=== PATIENT | male | born 1995 | race Caucasian/White ===

== ENCOUNTER 2016-12-02 11:05 | Emergency (ER) | payer MEDICAID ==
[~2016-12-02] VITALS: Ht 167.6 cm; Wt 78.0 kg
[~2016-12-02 11:05] MED LIST: METO5TAB57 PO; OMEP20CA9 PO; OMEP20TA62 PO; ONDA8TAB16 SL; PANT40TA3 PO; PRILOSEC PO; TRAM50TA2 PO
[2016-12-02] MEDS ORDERED: SODIUM CHLORIDE 0.9% 1,000 ML IV ONE (11:25)
[2016-12-02] MEDS ORDERED: SODIUM CHLORIDE 0.9% 1,000ML IVBOLUS ONE (11:30)
[2016-12-02] MEDS ORDERED: ONDANSETRON 2MG/ML, 2ML IVPush ONE ×2 (11:30→15:00)
[2016-12-02] MEDS ORDERED: FAMOTIDINE 20 MG/2 ML IVP ONE (11:30)
[2016-12-02] MEDS ORDERED: MAALOX/HYOSCYAMINE/LIDOCAINE 45 ML BTL PO ONE (11:30)
[2016-12-02] MEDS ORDERED: LORazepam 2 MG/ML, 1ML IVPush ONE (11:30)
[2016-12-02] MEDS ORDERED: FAMOTIDINE 20 MG/2 ML ONE (11:33)
[2016-12-02] MEDS ORDERED: ONDANSETRON 2MG/ML, 2ML ONE ×2 (11:33→14:44)
[2016-12-02] MEDS ORDERED: MORPHINE SULFATE 4 MG/ML, 1ML ONE ×4 (11:33→15:53)
[2016-12-02] MEDS ORDERED: MAALOX/HYOSCYAMINE/LIDOCAINE 45 ML BTL ONE (11:33)
[2016-12-02] MEDS ORDERED: LORazepam 2 MG/ML, 1ML ONE (11:35)
[2016-12-02] MEDS: MORPHINE SULFATE 4 MG/ML, 1ML IVPush PRN ×2 (11:46→12:06)
[2016-12-02 11:54] LABS: ASPARTATE AMINO TRANSFERASE 28 U/L (15-37); BLOOD UREA NITROGEN 15 mg/dL (7-18)
[2016-12-02] MEDS ORDERED: MORPHINE SULFATE 4 MG/ML, 1ML IVPush PRN (15:00)
[2016-12-02] MEDS ORDERED: OMNIPAQUE 350 MG/ML, 100ML BOTTLE ONE (15:29)
[2016-12-02 16:19] VITALS: BP 128/95
== END 2016-12-02 16:21 | disposition home or self-care (01) ==
LOC: ED 15:27
DX: K29.50 Unspecified chronic gastritis without bleeding (principal); D72.829 Elevated white blood cell count, unspecified; G43.A0 Cyclical vomiting, in migraine, not intractable; K21.9 Gastro-esophageal reflux disease without esophagitis; Z90.49 Acquired absence of other specified parts of digestive tract
CPT/HCPCS: 36415; 74020; 74177; 80053; 83690; 85025; 93005; 96361; 96374; 96375; 96376; 99285; J2060; J2405; J7030; Q9967; S0028

== ENCOUNTER 2017-01-27 09:04 | Emergency (ER) | payer MEDICAID ==
[~2017-01-27] VITALS: Ht 167.6 cm; Wt 76.1 kg
[2017-01-27] MEDS ORDERED: SODIUM CHLORIDE 0.9% 1,000 ML IV ONE (10:02)
[2017-01-27] MEDS ORDERED: OMEP20TA62 PO (10:04)
[2017-01-27] MEDS ORDERED: FAMOTIDINE 20 MG/2 ML ONE (10:26)
[2017-01-27] MEDS ORDERED: ONDANSETRON 2MG/ML, 2ML ONE (10:26)
[2017-01-27] MEDS ORDERED: MORPHINE SULFATE 4 MG/ML, 1ML ONE ×2 (10:26→11:15)
[2017-01-27] MEDS ORDERED: FAMOTIDINE 20 MG/2 ML IVP ONE (10:30)
[2017-01-27] MEDS ORDERED: ONDANSETRON 2MG/ML, 2ML IVPush ONE (10:30)
[2017-01-27] MEDS ORDERED: SODIUM CHLORIDE 0.9% 1,000ML IVBOLUS ONE (10:30)
[2017-01-27] MEDS: MORPHINE SULFATE 4 MG/ML, 1ML IVPush PRN ×2 (10:41→11:17)
[2017-01-27 11:13] LABS: HEMATOCRIT 51.7 % (39.2-51.8); HEMOGLOBIN 17.7 g/dL (13.7-18.0); WHITE BLOOD COUNT 13.5 x10^3/uL (3.4-10)
[2017-01-27 11:25] LABS: BLOOD UREA NITROGEN 16 mg/dL (7-18)
[2017-01-27 11:29] LABS: ASPARTATE AMINO TRANSFERASE 36 U/L (15-37)
[2017-01-27 12:42] VITALS: BP 122/68
== END 2017-01-27 12:45 | disposition home or self-care (01) ==
LOC: ED 12:07
DX: K59.00 Constipation, unspecified (principal); Z90.49 Acquired absence of other specified parts of digestive tract; K21.9 Gastro-esophageal reflux disease without esophagitis; D72.829 Elevated white blood cell count, unspecified
CPT/HCPCS: 36415; 74020; 80053; 81001; 83690; 85025; 87086; 96361; 96374; 96375; 96376; 99285; J2405; J7030; S0028

== ENCOUNTER 2017-05-20 14:58 | Emergency (ER) | payer OTHER, MEDICAID ==
[~2017-05-20] VITALS: Ht 167.6 cm; Wt 78.5 kg
[2017-05-20] MEDS ORDERED: MAALOX/HYOSCYAMINE/LIDOCAINE 45 ML BTL ONE ×2 (15:32→16:19)
[2017-05-20] MEDS ORDERED: SODIUM CHLORIDE FLUSH 10ML SYR IVF ONE (16:00)
[2017-05-20] MEDS ORDERED: MAALOX/HYOSCYAMINE/LIDOCAINE 45 ML BTL PO ONE (16:00)
[2017-05-20] MEDS ORDERED: ONDANSETRON 2MG/ML, 2ML IVPush ONE ×2 (16:00→17:00)
[2017-05-20] MEDS ORDERED: SODIUM CHLORIDE 0.9% 1,000ML IVBOLUS ONE (16:00)
[2017-05-20] MEDS ORDERED: FAMOTIDINE 20 MG/2 ML IVPush ONE (16:00)
[2017-05-20] MEDS ORDERED: PANT40TA3 PO (16:10)
[2017-05-20] MEDS ORDERED: ONDANSETRON 2MG/ML, 2ML ONE (16:19)
[2017-05-20] MEDS ORDERED: FAMOTIDINE 20 MG/2 ML ONE (16:19)
[2017-05-20 16:28] LABS: MEAN CORPUSCULAR HEMOGLOBIN 30.1 pg (27.5-34.5); MEAN CORPUSCULAR HGB CONC 34.5 g/dL (33.2-36.2); MEAN CORPUSCULAR VOLUME 87.2 fL (81-97); MEAN PLATELET VOLUME 9.1 fL (7.4-10.4); PLATELET COUNT 196 x10^3/uL (130-400); RED BLOOD COUNT 5.73 x10^6/uL (4.38-5.82); RED CELL DISTRIBUTION WIDTH 12.8 % (9.4-14.8)
[2017-05-20 16:38] LABS: ALANINE AMINOTRANSFERASE 36 U/L (12-78); ALBUMIN 4.8 g/dL (3.4-5.0); ANION GAP 13 mmol/L (5-15); CALCIUM 9.9 mg/dL (8.5-10.1); CHLORIDE 100 mmol/L (98-107); CREATININE 1.01 mg/dL (0.7-1.3)
[2017-05-20 16:40] LABS: ALKALINE PHOSPHATASE 96 U/L (45-117); BILIRUBIN,TOTAL 1.5 mg/dL (0.2-1.0); TOTAL PROTEIN 8.4 g/dL (6.4-8.2)
[2017-05-20 16:54] LABS: MD YES
[2017-05-20 16:57] LABS: BANDS%(MANUAL) 3 % (0-7); LYMPHS% (MANUAL) 3 % (22-44); MONOS#(MANUAL) 0.27 x10^3/uL (0.3-2.7); MONOS% (MANUAL) 1 % (2-9); SEG#(MANUAL) 24.83 x10^3/uL (1.8-6.8); SEGS% (MANUAL) 93 % (42-75)
[2017-05-20 16:58] LABS: <PLATELET ESTIMATE> ADEQUATE; <PLT MORPHOLOGY> NORMAL PLT MORPH; <RBC MORPHOLOGY> NORMAL
[2017-05-20] MEDS ORDERED: MORPHINE SULFATE 4 MG/ML, 1ML IVPush PRN (17:00)
[2017-05-20] MEDS ORDERED: MORPHINE SULFATE 4 MG/ML, 1ML ONE (17:06)
[2017-05-20 18:11] VITALS: BP 112/63
== END 2017-05-20 18:15 | disposition home or self-care (01) ==
LOC: ED 17:22
DX: R11.2 Nausea with vomiting, unspecified (principal); K29.70 Gastritis, unspecified, without bleeding; Z90.49 Acquired absence of other specified parts of digestive tract
CPT/HCPCS: 36415; 76700; 80053; 83690; 85025; 96361; 96374; 96375; 99285; J2405; J7030; S0028

== ENCOUNTER 2017-07-30 18:08 | Emergency (ER) | payer OTHER, MEDICAID ==
[~2017-07-30] VITALS: Ht 167.6 cm; Wt 76.7 kg
[2017-07-30 18:45] LABS: BASOPHILS # (AUTO) 0.01 x10^3/uL (0-0.1); BASOPHILS % (AUTO) 0 % (0-1); EOSINOPHILS % (AUTO) 0 % (1-7); LYMPHOCYTES # (AUTO) 2.28 x10^3/uL (1-3.4); LYMPHOCYTES % (AUTO) 14 % (22-44); MD NO; MEAN CORPUSCULAR HEMOGLOBIN 30.1 pg (27.5-34.5); MEAN CORPUSCULAR HGB CONC 34.1 g/dL (33.2-36.2); MEAN CORPUSCULAR VOLUME 88.1 fL (81-97); MEAN PLATELET VOLUME 8.9 fL (7.4-10.4); MONOCYTES # (AUTO) 0.49 x10^3/uL (0.2-0.8); MONOCYTES % (AUTO) 3 % (2-9); NEUTROPHILS # (AUTO) 13.61 x10^3/uL (1.8-6.8); NEUTROPHILS % (AUTO) 83 % (42-75); PLATELET COUNT 266 x10^3/uL (130-400); RED BLOOD COUNT 5.93 x10^6/uL (4.38-5.82); RED CELL DISTRIBUTION WIDTH 12.9 % (9.4-14.8)
[2017-07-30 18:56] LABS: ALANINE AMINOTRANSFERASE 147 U/L (12-78); ALBUMIN 5.1 g/dL (3.4-5.0); ANION GAP 13 mmol/L (5-15); CALCIUM 9.8 mg/dL (8.5-10.1); CHLORIDE 105 mmol/L (98-107)
[2017-07-30 18:58] LABS: ALKALINE PHOSPHATASE 79 U/L (45-117); BILIRUBIN,TOTAL 1.6 mg/dL (0.2-1.0); TOTAL PROTEIN 8.7 g/dL (6.4-8.2)
[2017-07-30] MEDS ORDERED: SODIUM CHLORIDE 0.9% 1,000ML IVBOLUS ONE (19:30)
[2017-07-30] MEDS ORDERED: ONDANSETRON 2MG/ML, 2ML IVPush ONE (19:30)
[2017-07-30] MEDS ORDERED: FAMOTIDINE 20 MG/2 ML IVP ONE (19:30)
[2017-07-30] MEDS ORDERED: SODIUM CHLORIDE FLUSH 10ML SYR IVF ONE (19:30)
[2017-07-30] MEDS ORDERED: FAMOTIDINE 20 MG/2 ML ONE (19:40)
[2017-07-30] MEDS ORDERED: MORPHINE SULFATE 4 MG/ML, 1ML ONE ×2 (19:40→21:01)
[2017-07-30] MEDS ORDERED: ONDANSETRON 2MG/ML, 2ML ONE (19:40)
[2017-07-30] MEDS: MORPHINE SULFATE 4 MG/ML, 1ML IVPush PRN ×2 (20:11→21:18)
[2017-07-30] MEDS ORDERED: MAALOX/HYOSCYAMINE/LIDOCAINE 45 ML BTL ONE (21:23)
[2017-07-30] MEDS ORDERED: MAALOX/HYOSCYAMINE/LIDOCAINE 45 ML BTL PO ONE (21:30)
[2017-07-30 21:33] LABS: MICROSCOPIC INDICATED
[2017-07-30 21:40] LABS: CULTURE INDICATED? NO
[2017-07-30 22:05] VITALS: BP 139/64
== END 2017-07-30 22:08 | disposition home or self-care (01) ==
LOC: ED 21:34
DX: R10.11 Right upper quadrant pain (principal); K21.9 Gastro-esophageal reflux disease without esophagitis; G43.A0 Cyclical vomiting, in migraine, not intractable; Z90.49 Acquired absence of other specified parts of digestive tract
CPT/HCPCS: 36415; 74018; 76700; 80053; 81001; 83690; 85025; 96361; 96374; 96375; 96376; 99285; J2405; J7030; S0028

== ENCOUNTER 2017-10-03 11:16 | Emergency (ER) | payer OTHER, MEDICAID ==
[~2017-10-03] VITALS: Ht 167.6 cm; Wt 74.8 kg
[2017-10-03] MEDS ORDERED: OMEP20TA62 PO (11:42)
[2017-10-03] MEDS ORDERED: HALOPERIDOL 5 MG/ML ONE (11:45)
[2017-10-03] MEDS ORDERED: MAALOX/HYOSCYAMINE/LIDOCAINE 45 ML BTL ONE (11:46)
[2017-10-03] MEDS ORDERED: MORPHINE SULFATE 4 MG/ML, 1ML ONE (11:46)
[2017-10-03] MEDS ORDERED: FAMOTIDINE 20 MG/2 ML ONE (11:46)
[2017-10-03 11:57] LABS: MEAN CORPUSCULAR HEMOGLOBIN 29.4 pg (27.5-34.5); MEAN CORPUSCULAR HGB CONC 33.9 g/dL (33.2-36.2); MEAN CORPUSCULAR VOLUME 86.9 fL (81-97); PLATELET COUNT 225 x10^3/uL (130-400); RED BLOOD COUNT 5.99 x10^6/uL (4.38-5.82); RED CELL DISTRIBUTION WIDTH 12.7 % (9.4-14.8)
[2017-10-03] MEDS ORDERED: SODIUM CHLORIDE FLUSH 10ML SYR IVF ONE (12:00)
[2017-10-03] MEDS ORDERED: FAMOTIDINE 20 MG/2 ML IVP ONE (12:00)
[2017-10-03] MEDS ORDERED: HALOPERIDOL 5 MG/ML IV ONE (12:00)
[2017-10-03] MEDS ORDERED: MORPHINE SULFATE 4 MG/ML, 1ML IVPush PRN (12:00)
[2017-10-03] MEDS ORDERED: MAALOX/HYOSCYAMINE/LIDOCAINE 45 ML BTL PO ONE (12:00)
[2017-10-03] MEDS ORDERED: SODIUM CHLORIDE 0.9% 1,000ML IVBOLUS ONE (12:00)
[2017-10-03 12:06] LABS: ALANINE AMINOTRANSFERASE 34 U/L (12-78); ALBUMIN 5.3 g/dL (3.4-5.0); ANION GAP 12 mmol/L (5-15); CHLORIDE 105 mmol/L (98-107); CREATININE 1.14 mg/dL (0.7-1.3)
[2017-10-03 12:09] LABS: ALKALINE PHOSPHATASE 92 U/L (45-117); BILIRUBIN,TOTAL 1.3 mg/dL (0.2-1.0)
[2017-10-03 12:34] LABS: MD YES
[2017-10-03 12:37] LABS: <PLATELET ESTIMATE> ADEQUATE; <PLT MORPHOLOGY> NORMAL PLT MORPH; <RBC MORPHOLOGY> NORMAL; BAND#(MANUAL) 0.37 x10^3/uL; BANDS%(MANUAL) 1 % (0-7); LYMPH#(MANUAL) 0.37 x10^3/uL (1-3.4); LYMPHS% (MANUAL) 1 % (22-44); MONOS#(MANUAL) 0.37 x10^3/uL (0.3-2.7); MONOS% (MANUAL) 1 % (2-9); SEGS% (MANUAL) 97 % (42-75)
[2017-10-03 13:26] VITALS: BP 124/65
== END 2017-10-03 13:29 | disposition home or self-care (01) ==
LOC: ED 11:50
DX: K29.00 Acute gastritis without bleeding (principal); D72.829 Elevated white blood cell count, unspecified
CPT/HCPCS: 36415; 80053; 83690; 85025; 96361; 96374; 96375; 99284; J1630; J7030; S0028

== ENCOUNTER 2017-12-16 18:56 | Emergency (ER) | payer MEDICAID, OTHER ==
[~2017-12-16] VITALS: Ht 167.6 cm; Wt 77.0 kg
[2017-12-16 19:22] LABS: MEAN CORPUSCULAR HEMOGLOBIN 30.1 pg (27.5-34.5); MEAN CORPUSCULAR HGB CONC 34.1 g/dL (33.2-36.2); MEAN CORPUSCULAR VOLUME 88.1 fL (81-97); MEAN PLATELET VOLUME 9.4 fL (7.4-10.4); PLATELET COUNT 220 x10^3/uL (130-400); RED BLOOD COUNT 5.74 x10^6/uL (4.38-5.82)
[2017-12-16 19:30] LABS: ALANINE AMINOTRANSFERASE 44 U/L (12-78); ALBUMIN 5.1 g/dL (3.4-5.0); ANION GAP 16 mmol/L (5-15); CALCIUM 10.3 mg/dL (8.5-10.1); CHLORIDE 101 mmol/L (98-107); CREATININE 1.29 mg/dL (0.7-1.3)
[2017-12-16] MEDS ORDERED: FAMOTIDINE 20 MG/2 ML IVP ONE (19:30)
[2017-12-16] MEDS ORDERED: SODIUM CHLORIDE FLUSH 10ML SYR IVF ONE ×2 (19:30→22:30)
[2017-12-16] MEDS ORDERED: ONDANSETRON 2MG/ML, 2ML IVPush ONE (19:30)
[2017-12-16] MEDS ORDERED: SODIUM CHLORIDE 0.9% 1,000ML IVBOLUS ONE ×2 (19:30→22:30)
[2017-12-16 19:32] LABS: ALKALINE PHOSPHATASE 98 U/L (45-117); BILIRUBIN,TOTAL 1.4 mg/dL (0.2-1.0); TOTAL PROTEIN 9.1 g/dL (6.4-8.2)
[2017-12-16] MEDS ORDERED: ONDANSETRON 2MG/ML, 2ML ONE (19:36)
[2017-12-16] MEDS ORDERED: HYDROmorphone 2 MG/ML, 1ML ONE ×2 (19:36→22:53)
[2017-12-16] MEDS ORDERED: FAMOTIDINE 20 MG/2 ML ONE (19:36)
[2017-12-16] MEDS: HYDROmorphone 2 MG/ML, 1ML IVPush PRN ×2 (19:39→22:58)
[2017-12-16 19:53] LABS: MD YES
[2017-12-16 19:55] LABS: <RBC MORPHOLOGY> NORMAL; BAND#(MANUAL) 0.88 x10^3/uL; BANDS%(MANUAL) 3 % (0-7); LYMPH#(MANUAL) 0.88 x10^3/uL (1-3.4); LYMPHS% (MANUAL) 3 % (22-44); MONOS#(MANUAL) 0.58 x10^3/uL (0.3-2.7); MONOS% (MANUAL) 2 % (2-9); SEG#(MANUAL) 26.86 x10^3/uL (1.8-6.8); SEGS% (MANUAL) 92 % (42-75)
[2017-12-16 19:56] LABS: <PLATELET ESTIMATE> ADEQUATE; <PLT MORPHOLOGY> NORMAL PLT MORPH
[2017-12-16 20:29] LABS: TROPONIN I < 0.015 ng/mL (0.000-0.045)
[2017-12-16 23:49] VITALS: BP 103/51
== END 2017-12-16 23:55 | disposition home or self-care (01) ==
LOC: ED 23:35
DX: K29.70 Gastritis, unspecified, without bleeding (principal); D72.829 Elevated white blood cell count, unspecified; K21.9 Gastro-esophageal reflux disease without esophagitis
CPT/HCPCS: 36415; 74021; 80053; 83605; 83690; 84484; 85025; 93005; 96361; 96374; 96375; 96376; 99285; J1170; J2405; J7030; S0028

== ENCOUNTER 2018-05-06 19:06 | Inpatient (IN) | payer OTHER ==
[~2018-05-06] VITALS: Ht 167.6 cm; Wt 77.0 kg
[2018-05-06] MEDS: SODIUM CHLORIDE 0.9% 1,000 ML IV SCH (00:30)
[2018-05-06] MEDS ORDERED: ONDANSETRON ODT 4 MG ONE (19:11)
[2018-05-06] MEDS ORDERED: SODIUM CHLORIDE FLUSH 10ML SYR IVF ONE (19:30)
[2018-05-06] MEDS ORDERED: MAALOX/HYOSCYAMINE/LIDOCAINE 45 ML BTL PO ONE (19:30)
[2018-05-06] MEDS ORDERED: ONDANSETRON 2MG/ML, 2ML IVPush ONE (19:30)
[2018-05-06] MEDS ORDERED: SODIUM CHLORIDE 0.9% 1,000ML IVBOLUS ONE (19:30)
[2018-05-06 19:33] LABS: MEAN CORPUSCULAR HEMOGLOBIN 29.6 pg (27.5-34.5); MEAN CORPUSCULAR HGB CONC 33.6 g/dL (33.2-36.2); MEAN CORPUSCULAR VOLUME 88.3 fL (81-97); MEAN PLATELET VOLUME 9.1 fL (7.4-10.4); PLATELET COUNT 252 x10^3/uL (130-400); RED BLOOD COUNT 6.02 x10^6/uL (4.38-5.82); RED CELL DISTRIBUTION WIDTH 13.5 % (9.4-14.8)
[2018-05-06 19:46] LABS: ALBUMIN 5.7 g/dL (3.4-5.0); ANION GAP 15 mmol/L (5-15); CALCIUM 10.6 mg/dL (8.5-10.1); CHLORIDE 106 mmol/L (98-107); CREATININE 1.18 mg/dL (0.7-1.3)
[2018-05-06 19:48] LABS: ALANINE AMINOTRANSFERASE 36 U/L (12-78); ALKALINE PHOSPHATASE 101 U/L (45-117); TOTAL PROTEIN 9.8 g/dL (6.4-8.2)
[2018-05-06 19:54] LABS: MD YES
[2018-05-06 19:55] LABS: BAND#(MANUAL) 1.21 x10^3/uL; BANDS%(MANUAL) 3 % (0-7); LYMPH#(MANUAL) 1.21 x10^3/uL (1-3.4); LYMPHS% (MANUAL) 3 % (22-44); MONOS#(MANUAL) 2.42 x10^3/uL (0.3-2.7); MONOS% (MANUAL) 6 % (2-9); SEG#(MANUAL) 35.46 x10^3/uL (1.8-6.8); SEGS% (MANUAL) 88 % (42-75)
[2018-05-06 19:56] LABS: <PLATELET ESTIMATE> ADEQUATE; <PLT MORPHOLOGY> NORMAL PLT MORPH; <RBC MORPHOLOGY> NORMAL
[2018-05-06] MEDS ORDERED: MAALOX/HYOSCYAMINE/LIDOCAINE 45 ML BTL ONE (20:05)
[2018-05-06] MEDS ORDERED: ONDANSETRON 2MG/ML, 2ML ONE (20:05)
--- NOTE | 2018-05-06 20:13 | NUR ---
IV ACCESS OBTAINED. PT MEDICATED PER JUL. CLIENT COORDINATOR AT BS FOR EKG
[2018-05-06] MEDS ORDERED: FAMOTIDINE 20 MG/2 ML IVPush ONE (20:30)
--- NOTE | 2018-05-06 20:37 | NUR ---
PT PROVIDED WITH UA CUP AND INSTRUCTED TO VOID.
[2018-05-06] MEDS ORDERED: FAMOTIDINE 20 MG/2 ML ONE (20:45)
--- NOTE | 2018-05-06 20:47 | NUR ---
PT MEDICATED PER MAR.
[2018-05-06] MEDS ORDERED: LORazepam 2 MG/ML, 1ML ONE (20:54)
[2018-05-06] MEDS ORDERED: LORazepam 2 MG/ML, 1ML IVPush ONE (21:00)
--- NOTE | 2018-05-06 21:02 | NUR ---
PT MEDICATED PER JUL. ERP NOTIFIED OF WBC.
[2018-05-06 21:05] LABS: AMPHETAMINE SCREEN, URINE Negative (Negative); BARBITURATE SCREEN, URINE Negative (Negative); BENZODIAZEPINE SCREEN, URINE Negative (Negative); CANNABINOID SCREEN, URINE Positive (Negative); COCAINE SCREEN, URINE Positive (Negative); METHADONE SCREEN, URINE Negative (Negative); OPIATE SCREEN, URINE Negative (Negative)
--- NOTE | 2018-05-06 22:07 | NUR ---
PT VSS AT THIS TIME. PT LAYING ON SIDE AND STATING PAIN IS GETTING WORSE. ERP NOTIFIED. PT HAS CALL LIGHT WITHIN REACH AT THIS TIME.
[2018-05-06 23:00] VITALS: BP 143/99
[2018-05-06] MEDS ORDERED: BISACODYL 10 MG SUPP PR PRN (23:00)
[2018-05-06] MEDS ORDERED: PROMETHAZINE 25 MG/ML, 1ML IM PRN (23:00)
[2018-05-06] MEDS ORDERED: ONDANSETRON 2MG/ML, 2ML IVPush PRN (23:00)
[2018-05-06] MEDS ORDERED: MORPHINE SULFATE 4 MG/ML, 1ML IVPush PRN (23:30)
[2018-05-07] MEDS: MORPHINE SULFATE 4 MG/ML, 1ML IVPush PRN ×7 (01:54→22:19)
[2018-05-07 04:04] VITALS: BP 121/78
[2018-05-07 05:05] LABS: MEAN CORPUSCULAR HEMOGLOBIN 30.3 pg (27.5-34.5); MEAN CORPUSCULAR HGB CONC 34.2 g/dL (33.2-36.2); MEAN CORPUSCULAR VOLUME 88.7 fL (81-97); MEAN PLATELET VOLUME 9.3 fL (7.4-10.4); PLATELET COUNT 201 x10^3/uL (130-400); RED BLOOD COUNT 5.14 x10^6/uL (4.38-5.82); RED CELL DISTRIBUTION WIDTH 13.4 % (9.4-14.8)
[2018-05-07 05:06] LABS: ALANINE AMINOTRANSFERASE 30 U/L (12-78); ALBUMIN 4.3 g/dL (3.4-5.0); ANION GAP 8 mmol/L (5-15); CALCIUM 8.8 mg/dL (8.5-10.1); CHLORIDE 108 mmol/L (98-107); CREATININE 0.86 mg/dL (0.7-1.3)
[2018-05-07 05:09] LABS: ALKALINE PHOSPHATASE 75 U/L (45-117); BILIRUBIN,TOTAL 0.9 mg/dL (0.2-1.0); TOTAL PROTEIN 7.6 g/dL (6.4-8.2)
[2018-05-07 05:41] LABS: MD YES
[2018-05-07 05:43] LABS: BANDS%(MANUAL) 4 % (0-7); LYMPH#(MANUAL) 1.25 x10^3/uL (1-3.4); LYMPHS% (MANUAL) 5 % (22-44); MONOS#(MANUAL) 0.75 x10^3/uL (0.3-2.7); MONOS% (MANUAL) 3 % (2-9); SEGS% (MANUAL) 86 % (42-75)
[2018-05-07 05:44] LABS: REACTIVE LYMPHS % (MANUAL) 2 % (0-0)
[2018-05-07 05:45] LABS: <PLATELET ESTIMATE> ADEQUATE; <PLT MORPHOLOGY> NORMAL PLT MORPH; <RBC MORPHOLOGY> NORMAL
[2018-05-07] MEDS: SODIUM CHLORIDE 0.9% 1,000 ML IV SCH ×3 (07:47→22:24)
[2018-05-07] MEDS: PANTOPRAZOLE 40 MG IV IVPush SCH (08:11)
[2018-05-07 08:36] VITALS: BP 122/74
[2018-05-07 10:40] LABS: FREE T4 (FREE THYROXINE) 1.02 ng/dL (0.76-1.46); THYROID STIMULATING HORMONE 0.379 mIU/L (0.358-3.740)
[2018-05-07] MEDS ORDERED: ERGOCALCIFEROL 50,000 UNIT CAPSULE PO SCH (14:00)
[2018-05-07 14:42] VITALS: BP 120/69
[2018-05-07 18:58] LABS: MICROSCOPIC NOT IND
[2018-05-07 19:07] LABS: CULTURE INDICATED? NO; MICROSCOPIC NOT IND
[2018-05-07 20:19] LABS: CULTURE INDICATED? NO
[2018-05-07 21:53] VITALS: BP 125/75
[2018-05-08] MEDS: MORPHINE SULFATE 4 MG/ML, 1ML IVPush PRN ×3 (01:26→07:46)
[2018-05-08 01:33] VITALS: BP 119/76
[2018-05-08] MEDS: SODIUM CHLORIDE 0.9% 1,000 ML IV SCH (04:36)
[2018-05-08 05:40] LABS: MEAN CORPUSCULAR HEMOGLOBIN 30.3 pg (27.5-34.5); MEAN CORPUSCULAR HGB CONC 34.2 g/dL (33.2-36.2); MEAN CORPUSCULAR VOLUME 88.7 fL (81-97); PLATELET COUNT 151 x10^3/uL (130-400); RED BLOOD COUNT 4.63 x10^6/uL (4.38-5.82)
[2018-05-08 05:55] LABS: ALANINE AMINOTRANSFERASE 40 U/L (12-78); ALBUMIN 3.5 g/dL (3.4-5.0); ANION GAP 6 mmol/L (5-15); CALCIUM 8.1 mg/dL (8.5-10.1); CHLORIDE 107 mmol/L (98-107); CREATININE 0.79 mg/dL (0.7-1.3)
[2018-05-08 05:57] LABS: ALKALINE PHOSPHATASE 61 U/L (45-117); BILIRUBIN,TOTAL 1.2 mg/dL (0.2-1.0); TOTAL PROTEIN 6.2 g/dL (6.4-8.2)
[2018-05-08] MEDS: PANTOPRAZOLE 40 MG IV IVPush SCH (06:13)
[2018-05-08 07:11] LABS: BASOPHILS # (AUTO) 0.02 x10^3/uL (0-0.1); BASOPHILS % (AUTO) 0 % (0-1); EOSINOPHILS # (AUTO) 0.13 x10^3/uL (0-0.4); EOSINOPHILS % (AUTO) 2 % (1-7); LYMPHOCYTES % (AUTO) 26 % (22-44); MD SCAN; MONOCYTES # (AUTO) 0.58 x10^3/uL (0.2-0.8); MONOCYTES % (AUTO) 7 % (2-9); NEUTROPHILS # (AUTO) 5.26 x10^3/uL (1.8-6.8); NEUTROPHILS % (AUTO) 65 % (42-75)
[2018-05-08 09:25] VITALS: BP 110/74
[2018-05-08] MEDS ORDERED: RANI150T23 PO (13:27)
== END 2018-05-08 13:25 | disposition home or self-care (01) | DRG 392 ==
LOC: ED 21:50 → EDIP 22:26 → 4NOR 23:00
PROVIDERS: ADMIT Internal Medicine; ATTEND Internal Medicine
DX: K31.89 Other diseases of stomach and duodenum (principal); D72.829 Elevated white blood cell count, unspecified; D75.1 Secondary polycythemia; E83.52 Hypercalcemia; E86.0 Dehydration; F12.10 Cannabis abuse, uncomplicated; F14.10 Cocaine abuse, uncomplicated; R11.2 Nausea with vomiting, unspecified; R00.0 Tachycardia, unspecified; G89.29 Other chronic pain; R07.9 Chest pain, unspecified; K21.9 Gastro-esophageal reflux disease without esophagitis; K29.50 Unspecified chronic gastritis without bleeding; Z86.19 Personal history of other infectious and parasitic diseases; Z90.49 Acquired absence of other specified parts of digestive tract
CPT/HCPCS: 36415; 84155; 84156; 87806; 99285; J3490; 71046; 80053; 80074; 80307; 81003; 82306; 83615; 83690; 83735; 83970; 84165; 84166; 84439; 84443; 84481; 85025; 86677; 93005; G0378; J2405; J2550; C9113; G0475; J2060; J7030

== ENCOUNTER 2018-06-14 14:24 | Emergency (ER) | payer MEDICAID ==
[~2018-06-14] VITALS: Ht 167.6 cm; Wt 77.7 kg
[~2018-06-14 14:24] MED LIST changes: +RANI150T23 PO
--- NOTE | 2018-06-14 15:05 | NUR ---
[id number]
--- NOTE | 2018-06-14 15:18 | NUR ---
First contact with pt. Pt states, "I am here for abdominal pain. Upper middle. It gets worse with anything. Nothing makes it better." Pt denies cp, sob, n/v/d, or trauma. NADN. Pt resting on gurney watching T.V.. Pt connected to NIBP and continous pulse ox. No needs requested at this time.
[2018-06-14 15:21] LABS: ALANINE AMINOTRANSFERASE 66 U/L (12-78); ALBUMIN 4.6 g/dL (3.4-5.0); ANION GAP 8 mmol/L (5-15); CALCIUM 8.9 mg/dL (8.5-10.1); CHLORIDE 104 mmol/L (98-107); CREATININE 0.76 mg/dL (0.7-1.3)
[2018-06-14 15:23] LABS: ALKALINE PHOSPHATASE 76 U/L (45-117); TOTAL PROTEIN 8.2 g/dL (6.4-8.2)
[2018-06-14] MEDS ORDERED: MAALOX/HYOSCYAMINE/LIDOCAINE 45 ML BTL PO ONE (15:30)
[2018-06-14 15:31] LABS: BASOPHILS # (AUTO) 0.06 x10^3/uL (0-0.1); BASOPHILS % (AUTO) 1 % (0-1); EOSINOPHILS # (AUTO) 0.01 x10^3/uL (0-0.4); EOSINOPHILS % (AUTO) 0 % (1-7); HEMOGRAM NOTE RECHECKED; LYMPHOCYTES # (AUTO) 1.44 x10^3/uL (1-3.4); LYMPHOCYTES % (AUTO) 13 % (22-44); MD SCAN; MEAN CORPUSCULAR HEMOGLOBIN 30.9 pg (27.5-34.5); MEAN CORPUSCULAR HGB CONC 35.1 g/dL (33.2-36.2); MEAN CORPUSCULAR VOLUME 88.1 fL (81-97); MEAN PLATELET VOLUME 8.8 fL (7.4-10.4); MONOCYTES # (AUTO) 0.82 x10^3/uL (0.2-0.8); MONOCYTES % (AUTO) 7 % (2-9); NEUTROPHILS % (AUTO) 79 % (42-75); PLATELET COUNT 221 x10^3/uL (130-400); RED BLOOD COUNT 5.47 x10^6/uL (4.38-5.82); RED CELL DISTRIBUTION WIDTH 12.6 % (9.4-14.8)
[2018-06-14] MEDS ORDERED: MAALOX/HYOSCYAMINE/LIDOCAINE 45 ML BTL ONE (15:33)
[2018-06-14] MEDS ORDERED: FAMOTIDINE 20 MG/2 ML ONE (15:33)
[2018-06-14] MEDS ORDERED: ONDANSETRON 2MG/ML, 2ML ONE (15:35)
[2018-06-14] MEDS ORDERED: ONDANSETRON 2MG/ML, 2ML IVPush ONE (16:00)
[2018-06-14] MEDS ORDERED: SODIUM CHLORIDE FLUSH 10ML SYR IVF ONE (16:00)
[2018-06-14] MEDS ORDERED: FAMOTIDINE 20 MG/2 ML IVP ONE (16:00)
[2018-06-14] MEDS ORDERED: ZIPRASIDONE 20 MG INJ IM ONE ×2 (16:22→16:30)
--- NOTE | 2018-06-14 16:28 | NUR ---
Went to provide medication to pt per EMAR. Pt declining medication due to, "It makes me feel jittery and anxious. I am not nauseated. I am just having pain. I don't have my appointment with the specialist until July. If I don't get something for the pain I don't want to be discharged."
[2018-06-14] MEDS ORDERED: HYDROcodone/APAP 5/325 TABLET PO ONE (16:30)
[2018-06-14] MEDS ORDERED: HYDROcodone/APAP 5/325 TABLET ONE (16:35)
[2018-06-14 17:45] VITALS: BP 127/63
--- NOTE | 2018-06-14 17:45 | NUR ---
Patient given discharge instructions and they have confirmed that they understand the instructions. Patient ambulatory with steady gait. Pt states, "I am feeling better now, Thank you." Pt left with all discharge paperwork, prescription, and all personal belongings.
== END 2018-06-14 17:47 | disposition home or self-care (01) ==
LOC: ED 15:44
DX: K29.70 Gastritis, unspecified, without bleeding (principal); K29.00 Acute gastritis without bleeding
CPT/HCPCS: 36415; 80053; 83690; 85025; 86677; 96374; 96375; 99283; J2405; J3490

== ENCOUNTER 2019-03-07 13:11 | Emergency (ER) | payer MEDICAID ==
[~2019-03-07] VITALS: Ht 167.6 cm; Wt 90.7 kg
[~2019-03-07 13:11] MED LIST changes: +RANI-467 PO; -RANI150T23 PO
--- NOTE | 2019-03-07 13:48 | NUR ---
FIRST CONTACT WITH PT. PT C/O EPIGASTRIC PAIN AND N/V SINCE YESTERDAY. PT USING PHENGER[employer] SUPPOSITORIES AT HOME W/O RELIEF. PT'S AOX4. RESPS EVEN AND UNLABORED. ALL MONITORS IN PLACE. SINUS [employer]ACHU[employer] ON [employer]S TECHNOLOGY MANAGER RATE 120'S AT THIS TIME. CALL LIGHT WITHIN REACH. PT'S FAMILY AT BEDSIDE.
[2019-03-07] MEDS ORDERED: SODIUM CHLORIDE FLUSH 10ML SYR IVF ONE (14:00)
[2019-03-07] MEDS ORDERED: MAALOX/HYOSCYAMINE/LIDOCAINE 45 ML BTL PO ONE (14:00)
[2019-03-07] MEDS ORDERED: ONDANSETRON 2MG/ML, 2ML IVPush ONE (14:00)
[2019-03-07] MEDS ORDERED: SODIUM CHLORIDE 0.9% 1,000ML IVBOLUS ONE (14:00)
[2019-03-07] MEDS ORDERED: FAMOTIDINE 20 MG/2 ML IV ONE (14:00)
[2019-03-07] MEDS ORDERED: ONDANSETRON 2MG/ML, 2ML ONE (14:06)
[2019-03-07] MEDS ORDERED: MORPHINE SULFATE 4 MG/ML, 1ML ONE ×2 (14:06→15:32)
[2019-03-07] MEDS ORDERED: MAALOX/HYOSCYAMINE/LIDOCAINE 45 ML BTL ONE (14:06)
[2019-03-07] MEDS ORDERED: FAMOTIDINE 20 MG/2 ML ONE (14:06)
[2019-03-07 14:08] LABS: MEAN CORPUSCULAR HGB CONC 34.3 g/dL (33.2-36.2); MEAN CORPUSCULAR VOLUME 87.6 fL (81-97); MEAN PLATELET VOLUME 8.9 fL (7.4-10.4); PLATELET COUNT 273 x10^3/uL (130-400); RED BLOOD COUNT 5.89 x10^6/uL (4.38-5.82); RED CELL DISTRIBUTION WIDTH 12.8 % (9.4-14.8)
[2019-03-07 14:20] LABS: ALANINE AMINOTRANSFERASE 62 U/L (12-78); ANION GAP 15 mmol/L (5-15); CALCIUM 9.9 mg/dL (8.5-10.1); CHLORIDE 99 mmol/L (98-107); CREATININE 1.19 mg/dL (0.7-1.3)
[2019-03-07 14:22] LABS: ALKALINE PHOSPHATASE 96 U/L (45-117); BILIRUBIN,TOTAL 1.6 mg/dL (0.2-1.0)
[2019-03-07] MEDS: MORPHINE SULFATE 4 MG/ML, 1ML IVPush PRN ×2 (14:23→15:34)
[2019-03-07 14:25] LABS: MD YES
--- NOTE | 2019-03-07 14:36 | NUR ---
PT MEDICATED PER EMAR. PT TOLERATED WELL. IVF INFUSING AT THIS TIME.
--- NOTE | 2019-03-07 14:40 | NUR ---
PT AWARES OF UA. PT STATES "AFTER PAIN GOES AWAY, I'LL TRY TO PEE"
[2019-03-07 14:48] LABS: TROPONIN I < 0.015 ng/mL (0.000-0.045)
--- NOTE | 2019-03-07 15:05 | NUR ---
PT PROVIDED URINE SAMPLE AT THIS TIME. UA SENT.
[2019-03-07] MEDS ORDERED: MORPHINE SULFATE 4 MG/ML, 1ML IVPush PRN (15:30)
[2019-03-07 15:35] VITALS: BP 125/64
--- NOTE | 2019-03-07 15:38 | NUR ---
pt medicated per emar.pt tolerated well.
[2019-03-07 15:55] LABS: <PLATELET ESTIMATE> ADEQUATE; <PLT MORPHOLOGY> NORMAL PLT MORPH; <RBC MORPHOLOGY> NORMAL; BAND#(MANUAL) 0.56 x10^3/uL; BANDS%(MANUAL) 2 % (0-7); LYMPH#(MANUAL) 1.39 x10^3/uL (1-3.4); LYMPHS% (MANUAL) 5 % (22-44); MONOS#(MANUAL) 1.39 x10^3/uL (0.3-2.7); MONOS% (MANUAL) 5 % (2-9); SEG#(MANUAL) 24.46 x10^3/uL (1.8-6.8); SEGS% (MANUAL) 88 % (42-75)
--- NOTE | 2019-03-07 16:04 | NUR ---
Patient/Caregiver given discharge instructions and they have confirmed that they understand the instructions. Patient ambulatory with steady gait.
[2019-03-07 16:12] LABS: MICROSCOPIC AUTO
[2019-03-07 16:14] LABS: CULTURE INDICATED? NO
[2019-03-07 16:20] LABS: AMPHETAMINE SCREEN, URINE Negative (Negative); BARBITURATE SCREEN, URINE Negative (Negative); BENZODIAZEPINE SCREEN, URINE Negative (Negative); CANNABINOID SCREEN, URINE Positive (Negative); COCAINE SCREEN, URINE Negative (Negative); METHADONE SCREEN, URINE Negative (Negative); OPIATE SCREEN, URINE Positive (Negative)
== END 2019-03-07 16:06 | disposition home or self-care (01) ==
LOC: ED 15:39
DX: R10.13 Epigastric pain (principal); R11.2 Nausea with vomiting, unspecified; Z90.49 Acquired absence of other specified parts of digestive tract; K21.9 Gastro-esophageal reflux disease without esophagitis
CPT/HCPCS: 36415; 80053; 80307; 81001; 83690; 84484; 85025; 93005; 96361; 96374; 96375; 96376; 99284; J2270; J2405; J3490; J7030